=== PATIENT | female | born 1965 | race Caucasian/White ===

== ENCOUNTER 2016-09-22 16:36 | Emergency (ER) | payer MEDICAID ==
[2016-09-22] MEDS ORDERED: 0.9 % SODIUM CHLORIDE 1,000 ML BAG IV ONE (17:08)
[2016-09-22] MEDS ORDERED: DIPHENHYDRAMINE HCL IV 50 MG/ML VIAL IVP ONE (17:08)
--- NOTE | 2016-09-22 17:08 | Emergency Department Record ---
History of Present Illness - General Chief Complaint: Headache Migraine Stated Complaint: HEADACHE,NAUSEA,SWEATING Time Seen by Provider: 09/22/16 16:37 Source: Patient Mode of Arrival: Ambulatory Limitations: No limitations - History of Present Illness Initial Comments: 51 yo female presents with migraine headache for the last 2 hours. She reports she has had migraines most of her life. She reports frequent headaches but this headache did not go away with Ibuprofen. She is light and noise sensitive which is typical for her. She did not vomit. No fever or trauma. She is on Plavix. The location is frontal mostly and radiates backward. No speech changes, no vision changes except light sensitive. MD Complaint: Headache, "Migraine" Onset/Timin -: Hour(s) Onset Description: Sudden Location: Frontal, Occipital Severity scale (1-10): 9 Quality: Aching Consistency: Constant Improves With: Nothing Worsens With: Light, Noise Context: Occured at rest Associated Symptoms: Photophobia, Sensitivity to sound Treatments Prior to Arrival: Ibuprofen - Related Data Home Medications Medication Instructions Recorded Confirmed Last Taken Ibuprofen [Advil] 400 mg PO Q4HR 01/17/15 09/22/16 09/22/16 Aspirin Chewable 81 mg PO DAILY 08/26/15 09/22/16 09/22/16 Previous Rx's Medication Instructions Recorded Hydrocodone/Acetaminophen [Clayton 1 each PO Q8H #9 tablet 09/22/16 5-325 Tablet] Ondansetron [Zofran Odt] 4 mg PO Q8H #12 tab.rapdis 09/22/16 Allergies Allergy/AdvReac Type Severity Reaction Status Date / Time No Known Drug Allergies Allergy Unverified 02/21/16 10:51 Travel Screening - Travel/Exposure Within Last 30 Days Have you traveled within the last 30 days?: No - Travel/Exposure Within Last Year Have you traveled outside the [place] in the last year?: No - Additonal Travel Details Have you been exposed to anyone with a communicable illness?: No - Travel Symptoms Symptom Screening: None Review of Systems Constitutional: Denies: Chills, Fever, Malaise, Weakness Eyes: Reports: Photophobia. Denies: Eye discharge, Eye pain, Vision change ENT: Denies: Congestion, Ear pain, Hearing loss, Throat pain Respiratory: Denies: Cough, Dyspnea, Hemoptysis, Stridor Cardiovascular: Denies: Chest pain, Syncope Endocrine: Denies: Fatigue, Polydipsia, Polyuria Gastrointestinal: Reports: Abdominal pain (chronic from hernias), Nausea. Denies: Hematemesis, Hematochezia, Vomiting Genitourinary: Denies: Dysuria, Urgency Musculoskeletal: Reports: Back pain (chronic). Denies: Arthralgia, Joint swelling, Myalgia, Neck pain Neurological: Reports: Headache. Denies: Abnormal gait, Confusion, Numbness, Paresthesias, Tingling, Tremors, Vertigo, Weakness Psychiatric: Denies: Anxiety Hematological/Lymphatic: Denies: Anemia, Blood Clots, Easy bleeding, Easy bruising, Swollen glands Past Medical History - SOCIAL HISTORY Smoking Status: Current every day smoker Alcohol Use: None Drug Use: None - RESPIRATORY Hx Respiratory Disorders: No - CARDIOVASCULAR Hx Cardio Disorders: Yes Hx Abnormal EKG: Yes Hx Hypertension: Yes Comment:: clogged arteries.high cholesterol - NEURO Hx Neuro Disorders: Yes Hx Dizziness: Yes Hx Headaches: Yes - GI Hx GI Disorders: Yes Hx Abdominal Pain: Yes Hx Reflux: Yes Hx Hepatitis/Jaundice: Yes (Hep C) Hx Nausea/Vomiting: Yes Comment:: 2 abd hernias - Hx Genitourinary Disorders: No - ENDOCRINE Hx Endocrine Disorders: Yes Hx Thyroid Disease: Yes (Hypothyroid) - MUSCULOSKELETAL Hx Musculoskeletal Disorders: Yes Hx Arthritis: Yes - PSYCH Hx Psych Problems: No - HEMATOLOGY/ONCOLOGY Hx Hematology/Oncology Disorders: Yes Hx Blood Transfusions: Yes (with ankle sx) Family Medical History Any Significant Family History?: Yes Hx Diabetes: Father, Children, Brother/Sister Hx Heart Disease: Father Physical Exam - General General Appearance: Alert, Oriented x3, Cooperative, No acute distress, Other ( Calm no acute distress) Limitations: No limitations - Head Head exam: Atraumatic, Normocephalic, Normal inspection - Eye Eye exam: Normal appearance, PERRL, EOMI. negative: Conjunctival injection, Nystagmus, Periorbital swelling - ENT ENT exam: Normal exam, Mucous membranes moist Ear exam: Normal external inspection Nasal Exam: Normal inspection Mouth exam: Normal external inspection Teeth exam: Normal inspection Throat exam: Normal inspection - Neck Neck exam: Normal inspection, Full ROM. negative: Lymphadenopathy, Meningismus , Tenderness - Respiratory Respiratory exam: Normal lung sounds bilaterally. negative: Respiratory distress, Wheezes - Cardiovascular Cardiovascular Exam: Regular rate, Normal rhythm, Normal heart sounds - GI/Abdominal GI/Abdominal exam: Soft, Hernia (soft and non tender in the mid abdomen). negative: Guarding, Rebound, Tenderness - Rectal Rectal exam: Deferred - exam: Deferred - Extremities Extremities exam: Normal inspection, Full ROM, Normal capillary refill. negative: Tenderness - Back Back exam: Reports: Muscle spasm, Paraspinal tenderness, Tenderness. Denies: Rash noted - Neurological Neurological exam: Alert, CN II-XII intact, Normal gait, Oriented X3, Other ( clear speech, normal steady gate, no ataxia, intact hand eye coordination). negative: Abnormal gait, Altered, Motor sensory deficit - Psychiatric Psychiatric exam: Normal affect, Normal mood. negative: Agitated, Anxious - Skin Skin exam: Dry, Intact, Normal color, Warm Course Vital Signs 09/22/16 16:41 Temperature 97.5 F L Pulse Rate 65 Respiratory 20 Rate Blood Pressure 128/58 Pulse Ox 96 - Reevaluation(s) Reevaluation #1: The patient was seen and examined. She reports the headache is very typical of her migraines in location and quality. Today's is more intense and with more nausea. Given this and the fact she is on Plavix I recommend HCT as she does not have any head imaging on the EMR. The onset was 3pm. 09/22/16 17:12 Reevaluation #2: HCT was negative for acute process. The patient is starting to feeling relief with the IVF,Benadryl,Reglan infusion. 09/22/16 18:20 Reevaluation #3: The headache is resolved. The patient feels so much better and is ready to be DC home. 09/22/16 18:41 Disposition Disposition: Discharge Clinical Impression: Migraine Qualifiers: Migraine type: unspecified Status migrainosus presence: without status migrainosus Intractability: not intractable Qualified Code(s): G43.909 - Migraine, unspecified, not intractable, without status migrainosus Disposition: Home, Self-Care Condition: (1) Good Instructions: Migraine Headache (ED) Additional Instructions: Rest and stay well hydrated Return if you have any fever, vomiting, new symptoms or uncontrolled pain or concerns. Call your doctor first of the week for close follow up Prescriptions: Hydrocodone/Acetaminophen [Clayton 5-325 Tablet] 1 each PO Q8H #9 tablet Ondansetron [Zofran Odt] 4 mg PO Q8H #12 tab.rapdis Forms: Patient Portal Access Time of Disposition: 18:42
[2016-09-22] MEDS ORDERED: METOCLOPRAMIDE HCL 10 MG/2 ML VIAL IVP ONE (17:09)
[2016-09-22] MEDS ORDERED: MORPHINE SULFATE 5 MG/ML PFS IVP ONE (18:05)
--- NOTE | 2016-09-27 13:01 | CT SCAN REPORT ---
EXAM: HEAD CT WITHOUT CONTRAST HISTORY: ACUTE GENERALIZED HEADACHE NOT OTHERWISE SPECIFIED FOR ONE HOUR. TECHNIQUE: Contiguous axial images from the cerebral convexities to the foramen magnum were obtained without contrast. Comparison: None. Encounter: Initial. FINDINGS: The brain volume is normal. No acute intracranial hemorrhage, mass effect, or midline shift. No CT evidence of acute infarct. The ventricles, basal cisterns, and sulci are within normal limits. Moderate mucosal thickening in the maxillary sinuses. IMPRESSION: 1. NORMAL HEAD CT. 2. MODERATE MUCOSAL THICKENING IN THE MAXILLARY SINUSES COULD REFLECT CHRONIC SINUSITIS. JOB NUMBER: [id number] MTDD
== END 2016-09-22 18:54 | disposition home or self-care (01) ==
LOC: ER 16:36
DX: G43.909 Migraine, unspecified, not intractable, without status migrainosus (principal); H53.149 Visual discomfort, unspecified; R11.0 Nausea; I10 Essential (primary) hypertension; F17.210 Nicotine dependence, cigarettes, uncomplicated; Z79.02 Long term (current) use of antithrombotics/antiplatelets
CPT/HCPCS: 99284 ×2; 96374; 96375; 70450; J2270; J1200; J2765; J7030

== ENCOUNTER 2017-05-17 04:04 | Emergency (ER) | payer MEDICAID ==
[2017-05-17] MEDS ORDERED: BENZONATATE 100 MG CAPSULE PO ONE (04:12)
--- NOTE | 2017-05-17 04:18 | Emergency Department Record ---
History of Present Illness - General Chief Complaint: Cough Stated Complaint: COUGH,RUNNY NOSE Time Seen by Provider: 05/17/17 04:12 Source: Patient, Family Mode of Arrival: Ambulatory Limitations: No limitations - History of Present Illness Initial Comments: 52 yo female presents with cough for two days. The cough has been mostly dry at this point. No fevers. She has an associated sore throat. She reports runny nose. No nausea, vomiting or diarrhea. She states she did not have a flu shot this year. She is a smoker. No history of asthma or COPD. Her daughter was sick prior to her getting sick. PCP is at the [facility]. MD Complaint: Cough, Nasal congestion, Rhinorrhea, Sore throat -: Days(s) (2) Severity: Moderate Quality: Aching Consistency: Constant Improves With: Nothing Worsens With: Other (Coughing) Context: Sick contacts Associated Symptoms: Cough - Related Data Previous Rx's Medication Instructions Recorded Hydrocodone/Acetaminophen [Bryant 1 each PO Q8H #9 tablet 09/22/16 5-325 Tablet] Ondansetron [Zofran Odt] 4 mg PO Q8H #12 tab.rapdis 09/22/16 Azithromycin [Zithromax] 250 mg PO DAILY #4 tab 05/17/17 Benzonatate [Tessalon] 1 cap PO Q8H PRN #20 cap 05/17/17 Oseltamivir Phosphate [Tamiflu] 75 mg PO BID #10 capsule 05/17/17 Allergies Allergy/AdvReac Type Severity Reaction Status Date / Time No Known Drug Allergies Allergy Unverified 02/21/16 10:51 Review of Systems Constitutional: Denies: Chills, Fever, Weakness Eyes: Denies: Eye discharge, Eye pain, Photophobia ENT: Reports: Congestion, Throat pain. Denies: Ear pain Respiratory: Reports: Cough, Dyspnea. Denies: Hemoptysis, Stridor, Wheezes Cardiovascular: Denies: Syncope Endocrine: Denies: Fatigue Gastrointestinal: Denies: Abdominal pain, Diarrhea, Nausea, Vomiting Genitourinary: Denies: Dysuria, Urgency Musculoskeletal: Denies: Arthralgia, Back pain, Myalgia Skin: Denies: Bruising, Change in color, Rash Neurological: Denies: Headache, Numbness, Weakness Psychiatric: Denies: Anxiety Hematological/Lymphatic: Denies: Blood Clots, Easy bleeding, Easy bruising, Swollen glands Past Medical History - SOCIAL HISTORY Smoking Status: Current every day smoker Drug Use: None - RESPIRATORY Hx Respiratory Disorders: No - CARDIOVASCULAR Hx Cardio Disorders: Yes Hx Abnormal EKG: Yes Hx Hypertension: Yes Comment:: clogged arteries.high cholesterol - NEURO Hx Neuro Disorders: Yes Hx Dizziness: Yes Hx Headaches: Yes - GI Hx GI Disorders: Yes Hx Abdominal Pain: Yes Hx Reflux: Yes Hx Hepatitis/Jaundice: Yes (Hep C) Hx Nausea/Vomiting: Yes Comment:: 2 abd hernias - Hx Genitourinary Disorders: No - ENDOCRINE Hx Endocrine Disorders: Yes Hx Thyroid Disease: Yes (Hypothyroid) - MUSCULOSKELETAL Hx Musculoskeletal Disorders: Yes Hx Arthritis: Yes - PSYCH Hx Psych Problems: No - HEMATOLOGY/ONCOLOGY Hx Hematology/Oncology Disorders: Yes Hx Blood Transfusions: Yes (with ankle sx) Family Medical History Hx Diabetes: Father, Children, Brother/Sister Hx Heart Disease: Father Physical Exam - General General Appearance: Alert, Oriented x3, Cooperative, No acute distress Limitations: No limitations - Head Head exam: Atraumatic, Normal inspection - Eye Eye exam: Normal appearance. negative: Conjunctival injection, Periorbital swelling - ENT ENT exam: Normal exam, Mucous membranes moist, Normal orophraynx Ear exam: Normal external inspection Nasal Exam: Discharge (clear). negative: Dried blood, Sinus tenderness Mouth exam: negative: Drooling, Muffled voice, Tongue elevation, Tongue normal Teeth exam: Normal inspection. negative: Dental caries Throat exam: Normal inspection. negative: Tonsillar erythema, Tonsillomegaly, Tonsillar exudate, R peritonsillar mass, L peritonsillar mass - Neck Neck exam: Normal inspection, Full ROM. negative: Tenderness - Respiratory Respiratory exam: Rhonchi (few scattered). negative: Accessory muscle use, Chest wall tenderness, Prolonged expiratory, Respiratory distress, Stridor, Wheezes - Cardiovascular Cardiovascular Exam: Regular rate, Normal rhythm, Normal heart sounds Peripheral Pulses: 2+: Radial (R), Radial (L) - GI/Abdominal GI/Abdominal exam: Soft, Hernia - Rectal Rectal exam: Deferred - exam: Deferred - Extremities Extremities exam: Pedal edema (Left). negative: Normal inspection (LLE edema) - Back Back exam: Denies: CVA tenderness (R), CVA tenderness (L) - Neurological Neurological exam: Alert, Normal gait, Oriented X3 - Psychiatric Psychiatric exam: Normal affect, Normal mood. negative: Agitated, Anxious - Skin Skin exam: Dry, Intact, Normal color, Warm Course - Reevaluation(s) Reevaluation #1: 05/17/17 04:21 Vitals reviewed No hypoxia, tachycardia or fever. 05/17/17 04:38 The Influenza was negative The CXR preliminary read by me was negative for acute process. 05/17/17 04:41 I explained that her Flu swab could be a false negative given the high prevalence of Influenza A currently and her daughter's recent URI. I recommend Tamiflu as well. She is to call her PCP for close follow up. Disposition Disposition: Discharge Clinical Impression: Bronchitis Disposition: Home, Self-Care Condition: (1) Good Instructions: Acute Bronchitis (ED) Additional Instructions: Call your doctor for a recheck Return if worse, fever, short of breath or any concerns Prescriptions: Azithromycin [Zithromax] 250 mg PO DAILY #4 tab Benzonatate [Tessalon] 1 cap PO Q8H PRN #20 cap PRN Reason: Cough Oseltamivir Phosphate [Tamiflu] 75 mg PO BID #10 capsule Forms: Patient Portal Access Time of Disposition: 04:40 Quality - Quality Measures Quality Measures: N/A - Blood Pressure Screening Does Patient Have Any of the Following: No Blood Pressure Classification: Pre-Hypertensive BP Reading Systolic Measurement: 156 Diastolic Measurement: 82 Screening for High Blood Pressure: < Pre-Hypertensive BP, F/U Documented > [ G8950] Pre-Hypertensive Follow-up Interventions: Referral to alternative/primary care provider.
[2017-05-17 04:33] LABS: INFLUENZA A NEGATIVE (NEGATIVE); INFLUENZA B NEGATIVE (NEGATIVE)
[2017-05-17] MEDS ORDERED: AZITHROMYCIN 500 MG TABLET PO ONE (04:36)
--- NOTE | 2017-05-17 21:46 | RADIOLOGY REPORT ---
EXAM: CHEST 2 VIEWS HISTORY: COUGH FOR TWO DAYS AND CONGESTION. TECHNIQUE: PA and lateral views. COMPARISON: None. FINDINGS: Heart size is within normal limits. There is an approximately 1.5 cm focal opacity overlying the left base on the frontal view, not well seen on the lateral view. This is of uncertain significance, although a small patch of infiltrate or even nodule cannot be excluded. Follow-up repeat PA and bilateral oblique views suggested. No pleural effusion or pneumothorax evident. IMPRESSION: QUESTIONABLE SMALL PATCH OF INFILTRATE OR EVEN NODULE IN THE LEFT LOWER LUNG. FOLLOW-UP PA AND BILATERAL OBLIQUE VIEWS SUGGESTED. Report of the possible nodule in the left lower lung was discussed by myself with Dr. Shahid of the Emergency Department at phone number [phone] at the time of dictation at approximately 08:07 a.m. on 05/17/17. JOB NUMBER: [id number], [id number] [facility]
== END 2017-05-17 04:49 | disposition home or self-care (01) ==
LOC: ER 04:04
DX: J20.9 Acute bronchitis, unspecified (principal); I10 Essential (primary) hypertension
CPT/HCPCS: 71046; 87400; 99283